=== PATIENT | female | born 1945 | race Hispanic/Latino ===

== ENCOUNTER 2017-01-29 15:07 | Outpatient (CLI) | payer MEDICARE ==
--- NOTE | 2017-01-29 16:12 | Mammography Report ---
RIGHT DIGITAL SCREENING MAMMOGRAM CAD: 01/29/17 15:07:00 CLINICAL: Routine screening. Breast cancer survivor status post left mastectomy. COMPARISON:12/24/15 FINDINGS: The breast is heterogeneously dense, which may obscure small masses.No mass, architectural distortion or suspicious calcifications. IMPRESSION: No mammographic evidence of malignancy. BI-RADS CATEGORY: 1 - - Negative RECOMMENDATION: Routine screening in one year. ACR BI-RADS MAMMOGRAPHIC CODES: 0 = Needs additional imaging evaluation; 1 = Negative; 2 = Benign; 3 = Probably benign; 4 = Suspicious; 5 = Malignant; 6 = Known biopsy-proven malignancy COMMENT: 1. Dense breast tissue, i.e., adenosis, fibrocystic changes, etc., may obscure an underlying neoplasm. 2. Approximately 10% of cancers are not detected with mammography. 3. A negative mammography report should not delay biopsy if a clinically suspicious mass is present. COMMENT: Patient follow-up letters are generated via our [employer] application.
== END 2017-01-29 15:08 | disposition home or self-care (01) ==
LOC: SPVWC 15:07
PROVIDERS: ATTEND Internal Medicine Hematology
DX: Z12.31 Encounter for screening mammogram for malignant neoplasm of breast (principal); I10 Essential (primary) hypertension; Z90.12 Acquired absence of left breast and nipple; Z85.3 Personal history of malignant neoplasm of breast; Z87.891 Personal history of nicotine dependence
CPT/HCPCS: G0202-52

== ENCOUNTER 2018-02-24 14:25 | Outpatient (CLI) | payer MEDICARE ==
--- NOTE | 2018-02-24 16:02 | Mammography Report ---
Right mammogram and right breast ultrasound: Cancer survivor with left mastectomy. Routine views of the right breast are compared to her prior exam in 2017. There is currently a circumscribed 9 mm nodule in the upper outer right breast it is not apparent on the prior exam. The breast pattern otherwise is that of intermediate density and generally unchanged as well as being unremarkable. Ultrasound in the 11:00 location 5 cm from the nipple demonstrates an elongated, circumscribed, anechoic nodule with a maximum dimension of 6 mm. In the same location at 6 cm of the nipple there is a similar finding with a few small echoes within it the maximum dimension of 6.1 mm. No other significant findings. CAD used. Impression: Interval development of right breast cyst. No suspicious finding. Left mastectomy. Recommendation: Annual mammogram followup. BI-RADS CATEGORY: 2 = Benign ACR BI-RADS MAMMOGRAPHIC CODES: 0 = Needs additional imaging evaluation; 1 = Negative; 2 = Benign; 3 = Probably benign; 4 = Suspicious; 5 = Malignant; 6 = Known biopsy-proven malignancy COMMENT: 1. Dense breast tissue, i.e., adenosis, fibrocystic changes, etc., may obscure an underlying neoplasm. 2. Approximately 10% of cancers are not detected with mammography. 3. A negative mammography report should not delay biopsy if a clinically suspicious mass is present.
== END 2018-02-24 14:26 | disposition home or self-care (01) ==
LOC: SPVWC 14:25
PROVIDERS: ATTEND Internal Medicine Hematology
DX: Z12.31 Encounter for screening mammogram for malignant neoplasm of breast (principal)

== ENCOUNTER 2019-02-27 14:37 | Outpatient (CLI) | payer MEDICARE ==
--- NOTE | 2019-02-27 15:17 | Mammography Report ---
BONE DENSITY STUDY: Taking aromatase inhibitor. DEFINITIONS: BMD = Bone Mineral Density T-score = BMD related to mean peak bone mass of young adult (mean expressed in Standard Deviation) Z-score = Age matched BMD expressed in SD World Health Organization (WHO) Diagnostic Criteria Normal T-score > -1 SD Osteopenia T-score between -1 and -2.4 SD Osteoporosis T-score -2.5 SD or below FINDINGS: The weighted average BMD of lumbar spine L1-L4 is 1.061 with a T-score of 0.1. The weighted average BMD of the left hip is 0.765 with a T-score of -1.5. The femoral neck bone density is 0.638 with a T. value score of -1.9. IMPRESSION: The patient's average T-score is diagnostic for osteopenia and average relative risk for fracture. NOTE: BMD is not the only risk factor for fracture; also consider factors such as the patient's age, risk of falling, previous osteoporotic fracture, family history of osteoporotic fractures, current smoker, and low body weight. Garcia's triangle is a region of interest in femur, predominantly of trabecular bone. It is not a true anatomic site, and [facility] does not recommend its use clinically.
== END 2019-02-27 14:38 | disposition home or self-care (01) ==
LOC: SPVWC 14:37
PROVIDERS: ATTEND Internal Medicine Hematology
DX: M85.88 Other specified disorders of bone density and structure, other site (principal); C50.412 Malignant neoplasm of upper-outer quadrant of left female breast; Z79.811 Long term (current) use of aromatase inhibitors
CPT/HCPCS: 77080

== ENCOUNTER 2019-05-17 00:30 | Emergency (ER) | payer MEDICARE ==
[2019-05-17] MEDS ORDERED: NORCO 5/325 PO ONE (01:04)
--- NOTE | 2019-05-17 02:01 | Cat Scan Report ---
CT HEAD WITHOUT CONTRAST INDICATION: Fall, laceration to posterior scalp TECHNIQUE: All CT scans at this location are performed using CT dose reduction for ALARA by means of automated exposure control. COMPARISON: None available. FINDINGS: BRAIN: No hemorrhage or mass effect are seen. No evidence of acute infarction is noted. ORBITS: Normal as visualized. SOFT TISSUES OF HEAD: Normal. CALVARIUM: No fracture is seen. VISUALIZED PARANASAL SINUSES AND MASTOID AIR CELLS: Clear. ADDITIONAL FINDINGS: None. IMPRESSION: No acute intracranial abnormality. Signer Name: Jayden Dixon MD Signed: 05/17/2019 1:57 AM Workstation Name: [id number]
--- NOTE | 2019-05-17 02:11 | Cat Scan Report ---
CT ABDOMEN AND PELVIS WITHOUT CONTRAST INDICATION: Fall CONTRAST: Without IV, with oral COMPARISON: CT abdomen and pelvis 12/14/[address] scans at this location are performed using CT dose reduction for ALARA by means of automated e xposure control. FINDINGS: Chronic changes are seen in the lung bases. No areas of consolidation are noted. No pneumot horax or pneumoperitoneum are seen. Moderate compression of the L2 vertebral body is unchanged from 2 013. No acute fractures are identified. No obvious evidence of abdominal visceral injury is seen. In the upper portion of the anterior segment of the right lobe of the liver an ovoid 3.5 cm hypodensity is seen which is stable from 2013. No other masses are seen. Pancreatic atrophy is seen. Gallbladder appears within normal limits. No retroperitoneal hematoma is noted. Aortic atherosclerotic changes ar e seen moderately prominent but no obvious acute abnormalities are seen. No pelvic hematoma is noted. Bladder is distended but shows no obvious acute abnormality. No free fluid is seen. Appendix appears within normal limits. No evidence of bowel obstruction is seen. Moderate increase in colonic stool b urden suggest moderate constipation, particularly on the right. No abdominal wall hernia is seen. No focal inflammatory changes are noted. Mild left nephrolithiasis is noted without evidence of obstruct ion. Mild scarring and atrophy are noted in the left kidney. The left ureter is mildly prominent but shows no obvious calculi and this is of unknown chronicity. IMPRESSION: 1. No acute traumatic abnormalities are seen 2. Evidence of moderate constipation 3. Stable hypodensity in the right lobe of the liver probably is a hemangioma 4. Mild left nephrolithiasis without acute change seen Signer Name: Jayden Dixon MD Signed: 05/17/2019 2:07 AM Workstation Name: [id number]
[2019-05-17] MEDS ORDERED: XYLOCAINE 1%/ EPI 1:100,000 INFILTRATI ONE (02:24)
--- NOTE | 2019-05-17 02:53 | Emergency Department Report ---
ED Fall HPI - General Chief Complaint: Fall Stated Complaint: FALL Time Seen by Provider: 05/17/19 01:02 Source: patient, family Mode of arrival: Wheelchair - History of Present Illness Initial Comments: 73-year-old female presents to ED following a ground-level fall at home approx 1 hour prior to arrival. Family states patient was attempting to kill wasp, and fell down on the porch. Family denies LOC. Patient sustained laceration to back of head. Patient landed on her buttocks, complaining of pain to bilateral buttocks. Patient ambulatory after the fall. Patient not currently taking any blood thinners. MD Complaint: fall -: hour(s) (1) Fall From: standing When Fall Occurred: 1 hour [employer] Fall Witnessed: yes, by family Place Fall Occurred: home Loss of Consciousness: none Symptoms Prior to Fall: none Location: head, buttocks Severity: moderate Quality: aching Context: tripped/slipped Associated Symptoms: denies: headache, neck pain, chest paint, abdominal pain - Related Data Home Medications Medication Instructions Recorded Confirmed Last Taken Butorphanol Tartrate 1 spray INNOSTRIL PRN PRN 07/25/14 05/15/16 07/30/14 14:00 Calcium Carbonate [ Calcium 600 mg PO DAILY 07/25/14 05/28/16 05/27/16 Elemental 600 mg] Diltiazem HCl [Diltiazem 24Hr ER] 120 mg PO BID 07/25/14 05/28/16 05/27/16 Glucosamine/MSM/Chondroitin A 1 tab PO DAILY 07/25/14 05/28/16 05/27/16 [Glucosamine Chondroit MSM Tab] HYDROcodone/APAP 10-325 [Thompson 1 tab PO 4XD PRN 07/25/14 05/28/16 05/27/16 10-325 mg TAB] Lacosamide [Vimpat] 100 mg PO BID 07/25/14 05/28/16 05/28/16 Letrozole 2.5 mg PO DAILY 07/25/14 05/28/16 05/28/16 Levothyroxine [Synthroid] 100 mcg PO DAILY 07/25/14 05/28/16 05/27/16 Mv,Gerard,Min/Iron/Folic Acid/Lut 1 tab PO DAILY 07/25/14 05/28/16 05/27/16 [Complete Multi Tablet] Niacin 1 cap PO DAILY 07/25/14 05/28/16 05/27/16 Pantoprazole [Protonix TAB] 40 mg PO DAILY 07/25/14 05/28/16 05/28/16 Simvastatin 20 mg PO DAILY 07/25/14 05/28/16 07/30/14 22:00 Verapamil HCl [Verapamil ER PM] 80 mg PO BID 07/25/14 05/28/16 05/28/16 clonazePAM 1 mg PO TID 07/25/14 05/28/16 05/28/16 Butorphanol [Stadol] 10 mg INHALATION PRN PRN 05/21/16 05/21/16 Unknown Denosumab [Prolia] 60 mg SQ [id number] 05/21/16 05/28/16 Unknown Omeprazole 40 mg PO BID 05/21/16 05/28/16 05/28/16 Ondansetron [Zofran TAB] 4 mg PO Q8HR PRN 05/21/16 05/21/16 Unknown Oxybutynin Chloride [Ditropan Xl] 10 mg PO QDAY 05/21/16 05/21/16 Unknown Sertraline [Zoloft] 50 mg PO QDAY 05/21/16 05/28/16 05/28/16 Previous Rx's Medication Instructions Recorded Last Taken Type tiZANidine [Zanaflex] 4 mg PO TID #90 tablet 07/31/14 05/27/16 Rx traMADol [Ultram] 50 mg PO Q6HR PRN #7 tablet 05/17/19 Unknown Rx Allergies Allergy/AdvReac Type Severity Reaction Status Date / Time NSAIDS (Non-Steroidal AdvReac Bleeding Verified 05/15/16 11:47 Anti-Inflamma ED Review of Systems ROS: Stated complaint: FALL Other details as noted in HPI Comment: All other systems reviewed and negative Gastrointestinal: denies: nausea, vomiting Musculoskeletal: as per HPI Neurological: denies: headache ED Past Medical Hx - Past Medical History Previous Medical History?: Yes Hx Hypertension: Yes (1994) Hx Heart Attack/AMI: No Hx GERD: Yes Hx Arthritis: Yes Hx Headaches / Migraines: Yes (MIGRAINES) Hx Seizures: Yes (LAST SEIZURE 4-5 YRS AGO , NO MEDS) Additional medical history: High cholestrol. PUD - Surgical History Past Surgical History?: Yes Hx Breast Surgery: Yes (left mastectomy) - Social History Smoking Status: Current Every Day Smoker Substance Use Type: None - Medications Home Medications: Home Medications Medication Instructions Recorded Confirmed Last Taken Type Butorphanol Tartrate 1 spray INNOSTRIL PRN PRN 07/25/14 05/15/16 07/30/14 14:00 History Calcium Carbonate [ Calcium 600 mg PO DAILY 07/25/14 05/28/16 05/27/16 History Elemental 600 mg] Diltiazem HCl [Diltiazem 24Hr ER] 120 mg PO BID 07/25/14 05/28/16 05/27/16 History Glucosamine/MSM/Chondroitin A 1 tab PO DAILY 07/25/14 05/28/16 05/27/16 History [Glucosamine Chondroit MSM Tab] HYDROcodone/APAP 10-325 [Thompson 1 tab PO 4XD PRN 07/25/14 05/28/16 05/27/16 History 10-325 mg TAB] Lacosamide [Vimpat] 100 mg PO BID 07/25/14 05/28/16 05/28/16 History Letrozole 2.5 mg PO DAILY 07/25/14 05/28/16 05/28/16 History Levothyroxine [Synthroid] 100 mcg PO DAILY 07/25/14 05/28/16 05/27/16 History Mv,Gerard,Min/Iron/Folic Acid/Lut 1 tab PO DAILY 07/25/14 05/28/16 05/27/16 History [Complete Multi Tablet] Niacin 1 cap PO DAILY 07/25/14 05/28/16 05/27/16 History Pantoprazole [Protonix TAB] 40 mg PO DAILY 07/25/14 05/28/16 05/28/16 History Simvastatin 20 mg PO DAILY 07/25/14 05/28/16 07/30/14 22:00 History Verapamil HCl [Verapamil ER PM] 80 mg PO BID 07/25/14 05/28/16 05/28/16 History clonazePAM 1 mg PO TID 07/25/14 05/28/16 05/28/16 History tiZANidine [Zanaflex] 4 mg PO TID #90 tablet 07/31/14 05/28/16 05/27/16 Rx Butorphanol [Stadol] 10 mg INHALATION PRN PRN 05/21/16 05/21/16 Unknown History Denosumab [Prolia] 60 mg SQ [id number] 05/21/16 05/28/16 Unknown History Omeprazole 40 mg PO BID 05/21/16 05/28/16 05/28/16 History Ondansetron [Zofran TAB] 4 mg PO Q8HR PRN 05/21/16 05/21/16 Unknown History Oxybutynin Chloride [Ditropan Xl] 10 mg PO QDAY 05/21/16 05/21/16 Unknown History Sertraline [Zoloft] 50 mg PO QDAY 05/21/16 05/28/16 05/28/16 History traMADol [Ultram] 50 mg PO Q6HR PRN #7 tablet 05/17/19 Unknown Rx ED Physical Exam - General Limitations: Other General appearance: alert, in no apparent distress - Head Head exam: Present: normocephalic. Absent: atraumatic (3 cm superficial lac eration to left parietooccipital scalp) - Eye Eye exam: Present: normal appearance, PERRL, EOMI - ENT ENT exam: Present: mucous membranes moist - Neck Neck exam: Present: normal inspection. Absent: tenderness - Respiratory Respiratory exam: Present: normal lung sounds bilaterally. Absent: respiratory distress - Cardiovascular Cardiovascular Exam: Present: regular rate, normal rhythm - GI/Abdominal GI/Abdominal exam: Present: soft. Absent: distended, tenderness - Extremities Exam Extremities exam: Present: normal inspection - Back Exam Back exam: Absent: vertebral tenderness - Neurological Exam Neurological exam: Present: alert, oriented X3 - Psychiatric Psychiatric exam: Present: normal affect, normal mood - Skin Skin exam: Present: warm, dry, intact, normal color ED Course Vital Signs 05/17/19 05/17/19 05/17/19 00:32 00:52 01:00 Temperature 98 F 98.2 F Pulse Rate 91 H 91 H Respiratory 20 19 Rate Blood Pressure 167/80 120/84 Blood Pressure 141/74 [Right] O2 Sat by Pulse 96 98 95 Oximetry 05/17/19 05/17/19 05/17/19 02:25 02:30 03:00 Temperature Pulse Rate Respiratory Rate Blood Pressure 120/84 130/78 127/71 Blood Pressure [Right] O2 Sat by Pulse 95 95 92 Oximetry - Laceration /Wound Repair Head Wound Location: head Wound Length (cm): 4 Wound's Depth, Shape: superficial Wound Explored: clean Irrigated w/ Saline (ccs): 40 Anesthesia: Lidocaine w/ Epi Volume Anesthetic (ccs): 5 Number of Sutures: 5 (emmy) Layer Closure?: No Sterile Dressing Applied?: No ED Medical Decision Making - Radiology Data Radiology results: report reviewed, image reviewed - Medical Decision Making 73 yo F s/p mechanical fall at home. Imaging negative for any acute abnormalities. [place] placed for scalp laceration repair. Will discharge at this time. Return precautions given. Outpt f/u advised. - Differential Diagnosis fracture, contusion, intracranial injury Critical care attestation.: If time is entered above; I have spent that time in minutes in the direct care of this critically ill patient, excluding procedure time. ED Disposition Clinical Impression: Scalp laceration, Contusion of buttock, Fall, Head injury, acute Disposition: DC-01 TO HOME OR SELFCARE Is pt being admited?: No Condition: Stable Instructions: Laceration (ED), Minor Head Injury (ED), Contusion in Adults (ED), Staple Care (ED) Additional Instructions: Staple removal in 10 days. Prescriptions: traMADol [Ultram] 50 mg PO Q6HR PRN #7 tablet PRN Reason: Pain Referrals: PRIMARY CARE,MD [Primary Care Provider] - 3-5 Days Time of Disposition: 04:46
--- NOTE | 2019-05-17 03:52 | XRay Report ---
LUMBAR SPINE 2 VIEWS INDICATION: injury COMPARISON: CT abdomen and pelvis 12/14/2012 FINDINGS: Old compression fracture of the L2 vertebral body is seen. No acute fractures are noted. De generative changes are seen. Disc space narrowing is noted at L1-2. Facet arthritic changes are seen. Atherosclerotic changes are noted. Moderate amount of stool is seen in the colon is consistent with constipation. Signer Name: Jayden Dixon MD Signed: 05/17/2019 3:47 AM Workstation Name: [email or web address]
--- NOTE | 2019-05-17 03:53 | XRay Report ---
PELVIS AP 0138 INDICATION: injury COMPARISON: None available. FINDINGS: Lower lumbar degenerative changes are seen. No fractures or dislocations are noted. Signer Name: Jayden Dixon MD Signed: 05/17/2019 3:48 AM Workstation Name: [id number]
--- NOTE | 2019-05-17 04:41 | Cat Scan Report ---
CT CERVICAL SPINE WITHOUT CONTRAST INDICATION: injury, fall TECHNIQUE: All CT scans at this location are performed using CT dose reduction for ALARA by means of automated exposure control. Axial CT images were obtained through the cervical spine. Sagittal and co noelle reformatted images were produced. COMPARISON: None available. Cervical spine findings: Increased cervical lordosis is noted. Anterior cervical fusion is seen at C5 -6. No fractures or subluxations are seen. Mild C1 to arthritic changes are noted. Mild diffuse degen erative changes are seen. Mild disc space narrowing is noted at C6-7. No soft tissue disc herniation is seen. A moderately prominent calcified disc protrusion is noted at C3-4. Facet arthritic changes a re seen. Additional findings: Pulmonary apices show emphysematous changes. IMPRESSION: No acute findings. Signer Name: Jayden Dixon MD Signed: 05/17/2019 4:37 AM Workstation Name: [id number]
[2019-05-17 05:53] VITALS: BP 119/73
== END 2019-05-17 05:10 | disposition home or self-care (01) ==
LOC: ED 00:30
DX: S01.01XA Laceration without foreign body of scalp, initial encounter (principal); S30.0XXA Contusion of lower back and pelvis, initial encounter; I10 Essential (primary) hypertension; K21.9 Gastro-esophageal reflux disease without esophagitis; M19.90 Unspecified osteoarthritis, unspecified site; G43.909 Migraine, unspecified, not intractable, without status migrainosus; E78.00 Pure hypercholesterolemia, unspecified; Z98.890 Other specified postprocedural states; F17.200 Nicotine dependence, unspecified, uncomplicated; Z79.899 Other long term (current) drug therapy; Z88.8 Allergy status to other drugs, medicaments and biological substances; W01.0XXA Fall on same level from slipping, tripping and stumbling without subsequent striking against object, initial encounter; Y93.89 Activity, other specified; Y92.098 Other place in other non-institutional residence as the place of occurrence of the external cause; Y99.8 Other external cause status
CPT/HCPCS: 70450; 72100; 72125; 72170; 74176; 99284

== ENCOUNTER 2020-10-22 14:19 | Outpatient (CLI) | payer BC, MEDICARE ==
--- NOTE | 2020-10-22 15:36 | XRay Report ---
Pelvis and left hip INDICATION: Left hip pain FINDINGS: Extensive heterotopic ossification. There is a fracture of the left hip at the level of the lesser trochanter. Extensive surrounding heterotopic ossification is noted. Femoral moncho is in place. Patient with history of fracture deformity 2019. Left femur 4 views INDICATION: Pain FINDINGS: Fracture involving the proximal femur at the level of the intertrochanteric region. This wa s also seen in 2019 at time of injury. Heterotopic bone is identified. No evidence for hardware failu re. No dislocation. Signer Name: Tristin Alvares MD Signed: 10/22/2020 3:32 PM Workstation Name: [id number]
--- NOTE | 2020-10-22 15:36 | XRay Report ---
Pelvis and left hip INDICATION: Left hip pain FINDINGS: Extensive heterotopic ossification. There is a fracture of the left hip at the level of the lesser trochanter. Extensive surrounding heterotopic ossification is noted. Femoral moncho is in place. Patient with history of fracture deformity 2019. Left femur 4 views INDICATION: Pain FINDINGS: Fracture involving the proximal femur at the level of the intertrochanteric region. This wa s also seen in 2019 at time of injury. Heterotopic bone is identified. No evidence for hardware failu re. No dislocation. Signer Name: Tristin Alvares MD Signed: 10/22/2020 3:32 PM Workstation Name: [id number]
== END 2020-10-22 14:20 | disposition home or self-care (01) ==
LOC: XRAY 14:19
PROVIDERS: ATTEND Orthopaedic Surgery
DX: S72.002A Fracture of unspecified part of neck of left femur, initial encounter for closed fracture (principal); M79.652 Pain in left thigh; X58.XXXA Exposure to other specified factors, initial encounter; Y93.89 Activity, other specified; Y92.89 Other specified places as the place of occurrence of the external cause; Y99.8 Other external cause status

== ENCOUNTER 2021-01-08 13:50 | Outpatient (CLI) | payer BC, MEDICARE ==
--- NOTE | 2021-01-08 14:46 | XRay Report ---
LEFT HIP 3 VIEWS INDICATION / CLINICAL INFORMATION: LEFT HIP PAIN. COMPARISON: 10/22/2020 FINDINGS: ORIF of proximal left femur fracture with an intramedullary nail in place. No change in appearance fr 10/22/2020 Signer Name: Rojelio Monsalve MD FACFlavia Signed: 01/08/2021 2:41 PM Workstation Name: [email or web address]
== END 2021-01-08 13:51 | disposition home or self-care (01) ==
LOC: XRAY 13:50
PROVIDERS: ATTEND Orthopaedic Surgery
DX: S72.142D Displaced intertrochanteric fracture of left femur, subsequent encounter for closed fracture with routine healing (principal); X58.XXXD Exposure to other specified factors, subsequent encounter